=== PATIENT | male | born 1945 | race African-American/Black ===

== ENCOUNTER 2017-07-01 20:40 | Emergency (ER) | payer OTHER ==
--- NOTE | 2017-07-01 23:04 | NUR ---
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
== END 2017-07-01 21:08 | disposition home or self-care (01) ==
LOC: ER 20:40
DX: Z53.21 Procedure and treatment not carried out due to patient leaving prior to being seen by health care provider (principal)